=== PATIENT | female | born 1980 | race Caucasian/White ===

== ENCOUNTER 2016-11-26 16:26 | Emergency (ER) | payer BC, OTHER ==
[2016-11-26 16:45] VITALS: PULSE 71; RESP 16; O2SAT 97
--- NOTE | 2016-11-26 17:23 | EDPHY ---
H & P Time Seen by Provider: 11/26/16 17:04 HPI/ROS: CHIEF COMPLAINT: Acute right shoulder injury HISTORY OF PRESENT ILLNESS: 36-year-old female visiting from [place] complaining of acute right shoulder pain after she was skiing yesterday [place], fell onto her right shoulder. She has no visible deformity, has reproducible pain with range of motion to the shoulder. Reproducible pain with palpation to the anterior aspect.No no paresthesia PHYSICAL EXAM (Prior to examination, patient consented to physical exam, hands were washed and my usual and customary physical exam procedures followed) 1) GENERAL: Well-developed, well-nourished, alert and oriented. Appears to be in no acute distress. 2) HEAD: Normocephalic 3) HEENT: Pupils equal, round, reactive to light bilaterally. 4) LUNGS: Breathing comfortably. 5) MUSCULOSKELETAL: Tender to palpation anterior shoulder. Reproducible pain with range of motion. Soft compartments. Normal coloration. 6) SKIN: intact 7) VASCULAR: pulses and cap refill present are brisk 8) NEUROLOGIC: Radial, ulnar, median nerve function intact with no deficits appreciated on exam DIFFERENTIAL DIAGNOSIS: in no particular order including but not limited to fracture, sprain, compartment syndrome Xray of the right shoulder interpreted by myself: no definitive acute osseous abnormality Procedure: Splint an upper extremity slingwas applied by ER oncology technician. After application of the splint I returned and re-examined the patient. The splint was adequately immobilizing the joint and distal to the splint the patient's circulation and sensation were intact. Patient shows no signs of compartment syndrome. Was given orthopedic precautions. Smoking Status: Never smoked Constitutional: Initial Vital Signs Temperature (C) 36.7 C 11/26/16 16:35 Heart Rate 71 11/26/16 16:35 Respiratory Rate 16 11/26/16 16:35 Blood Pressure 122/79 H 11/26/16 16:35 O2 Sat (%) 97 11/26/16 16:35 O2 Delivery Mode Room Air Allergies/Adverse Reactions: No Known Allergies Allergy (Unverified 11/26/16 16:40) Home Medications: Medication Instructions Recorded oxyCODONE/APAP 5/325 [Percocet 1 tab PO Q6 #10 tab 11/26/16 5/325] MDM/Departure - [facility] ED Course/Re-evaluation: The patient has soft compartments, no evidence of compartment syndrome. We discussed limitations of x-ray in the diagnosis of acute right shoulder injury. Informed that soft tissue injury not ruled out. Do not think that emergent MRI indicated at this time. She has return cm discoid tomorrow. Given copies of her x-rays. Placed in a sling. Recommend she follow up with orthopedic surgeon in [place] as she may necessitate MRI which make her on a nonemergent basis. She feels comfortable with this plan. - Depart Disposition: Home, Routine, Self-Care Clinical Impression: Right shoulder strain Qualifiers: Encounter type: initial encounter Qualified Code(s): S46.911A - Strain of unspecified muscle, fascia and tendon at shoulder and upper arm level, right arm , initial encounter Condition: Good Instructions: Shoulder Pain (ED) Additional Instructions: Return to the ER immediately if you experience discoloration, have worsening pain, numbness, tingling, or any other symptoms that concern you. If you received x-rays in the emergency department today, be advised, that ligamentous , tendon, muscular, and other non-bony injury cannot be fully ruled out. Try to keep your affected extremity elevated above the level of your chest, and keep cold packs on the affected area, for the next 48 hours. Prescriptions: oxyCODONE/APAP 5/325 [Percocet 5/325] 1 tab PO Q6 #10 tab Referrals: Dasia Ashton MD [Medical Doctor] - 2-3 days, call for appt.
[2016-11-26 17:46] VITALS: BP 109/76; TEMP 97.9
== END 2016-11-26 17:48 | disposition home or self-care (01) ==
DX: S46.911A Strain of unspecified muscle, fascia and tendon at shoulder and upper arm level, right arm, initial encounter (principal); V00.321A Fall from snow-skis, initial encounter; Y93.23 Activity, snow (alpine) (downhill) skiing, snowboarding, sledding, tobogganing and snow tubing
CPT/HCPCS: A4565